=== PATIENT | female | born 1950 | race Caucasian/White ===

== ENCOUNTER 2018-08-05 07:49 | Inpatient (IN) ==
[2018-08-04 09:47] LABS: Basophils % 0.6 % (0.0-0.8); Eosinophils # 0.1 10*3/uL (0.0-0.87); Eosinophils % 1.5 % (0.00-10.9); Hematocrit 41.9 VOL% (35.7-47.0); Hemoglobin 14.2 GM/DL (12.0-16.0); Immature Granulocytes % 0.5 %; Immature Granulocytes Absolute 0.03 #; Lymphocytes # 1.1 10*3/uL (1.4-4.0); Lymphocytes % 18.2 % (21.3-54.2); Mean Corpuscular HGB Conc 33.9 GM/DL (32-36); Mean Corpuscular Volume 95.4 FL (87-102); Monocytes % 6.6 % (1.7-12.7); Neutrophils % 72.6 % (38.7-73.9); Platelet Count 205 T/CUMM (130-400); Red Blood Count 4.39 MC/CUMM (3.8-5.5); Red Cell Distribution Width 12.1 % (9.3-17.3); White Blood Count 6.2 T/CUMM (4-12)
[2018-08-04 09:55] LABS: PT Patient Result 11.1 SECS
[2018-08-04 10:15] LABS: Calcium 8.5 MG/DL (8.5-10.1); Osmolality,Calculated 275.7 MOS/KG (273-304)
[2018-08-04 10:55] LABS: Apearance,Urine Slightly Hazy (Clear); Bilirubin,Urine Negative (Negative); Blood, Urine Small mg/dL (Negative); Calcium Oxalate Crystals,Urine Moderate /HPF (Few); Glucose,Urine (UA) Negative (Negative); Ketones,Urine 5 mg/dL (Negative); Mucus,Urine Occasional /LPF (Occasional); Nitrite,Urine Negative (Negative); Protein,Urine Negative; RBC,Urine 6 /HPF (0-4); Squamous Epithelial Cell,Urine Occasional /HPF (0-10); Urine Color Yellow (Yellow); Urine Urobilinogen < 2.0 EU/DL (0.2-1.0); WBC,Urine 2 /HPF (0-6)
[~2018-08-05 07:49] MED LIST: ceFAZolin 1,000 MG in SYRINGE 1 EACH IV ONE
[2018-08-05] MEDS ORDERED: SCOPOLAMINE 1.5 MG PATCH TRANSDERM ONE ×2 (07:52→08:02)
[2018-08-05] MEDS ORDERED: DIAZEPAM 5 MG TABLET ONE (07:52)
[2018-08-05] MEDS ORDERED: FAMOTIDINE 20 MG TABLET ONE (07:52)
[2018-08-05] MEDS ORDERED: ceFAZolin 1,000 MG VIAL ONE (07:52)
[2018-08-05] MEDS ORDERED: DIAZEPAM 5 MG TABLET PO ONE (08:01)
[2018-08-05] MEDS ORDERED: FAMOTIDINE 20 MG TABLET PO ONE (08:02)
[2018-08-05] MEDS: LACTATED RINGERS 1,000 ML IV SCH ×3 (08:19→18:31)
[2018-08-05] MEDS ORDERED: BISACODYL 10 MG SUPP RECTAL PRN (13:27)
[2018-08-05] MEDS ORDERED: ONDANSETRON 4 MG/2 ML VIAL IV PRN ×2 (13:27→14:13)
[2018-08-05] MEDS ORDERED: MAGNESIUM HYDROXIDE SUSP 30 ML UDCUP PO PRN (13:27)
[2018-08-05] MEDS ORDERED: BENZOCAINE/MENTHOL LOZENGE 18/BOX PO PRN (13:27)
[2018-08-05] MEDS ORDERED: ACETAMINOPHEN 325 MG TABLET PO PRN (13:27)
[2018-08-05] MEDS ORDERED: DEXAMETHASONE 4 MG/1 ML VIAL ONE ×2 (13:35→14:09)
[2018-08-05] MEDS ORDERED: EPINEPHrine 1 MG/ML VIAL ONE (13:35)
[2018-08-05 13:39] LABS: Apearance,Urine CLEAR (Clear); Bacteria,Urine Occasional /HPF (Few); Bilirubin,Urine Negative (Negative); Blood, Urine Small mg/dL (Negative); Glucose,Urine (UA) Negative (Negative); Ketones,Urine 80 mg/dL (Negative); Mucus,Urine Occasional /LPF (Occasional); Nitrite,Urine Negative (Negative); Protein,Urine Negative; RBC,Urine 3 /HPF (0-4); Urine Color Yellow (Yellow); Urine Specific Gravity 1.011 (1.001-1.035); Urine Urobilinogen < 2.0 EU/DL (0.2-1.0); WBC,Urine 2 /HPF (0-6)
[2018-08-05] MEDS ORDERED: DESFLURANE 1 UNIT/15 MINUTE INH ONE (14:08)
[2018-08-05] MEDS ORDERED: PROPOFOL 200 MG/20 ML VIAL IV ONE (14:08)
[2018-08-05] MEDS ORDERED: MIDAZOLAM 2 MG/2 ML VIAL ONE (14:08)
[2018-08-05] MEDS ORDERED: KETOROLAC 30 MG/1 ML VIAL ONE (14:09)
[2018-08-05] MEDS ORDERED: ACETAMINOPHEN 1,000 MG/100 ML VIAL IV ONE (14:09)
[2018-08-05] MEDS ORDERED: LACTATED RINGERS 1,000 ML IV ONE (14:09)
[2018-08-05] MEDS ORDERED: NEOSTIGMINE 10 MG/10 ML VIAL ONE (14:09)
[2018-08-05] MEDS ORDERED: ROCURONIUM 100 MG/10 ML VIAL IV ONE (14:09)
[2018-08-05] MEDS ORDERED: GLYCOPYRROLATE 0.4 MG/2 ML VIAL ONE (14:09)
[2018-08-05] MEDS: HYDROmorphone 2 MG/1 ML VIAL IV PRN ×4 (14:15→20:45)
[2018-08-05] MEDS: ceFAZolin 1,000 MG in SYRINGE 1 EACH IV SCH (19:37)
[2018-08-06] MEDS: LACTATED RINGERS 1,000 ML IV SCH ×2 (00:51→09:24)
[2018-08-06] MEDS: HYDROmorphone 2 MG/1 ML VIAL IV PRN (03:28)
[2018-08-06] MEDS: ceFAZolin 1,000 MG in SYRINGE 1 EACH IV SCH (03:34)
[2018-08-06 03:59] LABS: Basophils % 0.1 % (0.0-0.8); Immature Granulocytes % 0.4 %; Immature Granulocytes Absolute 0.06 #; Lymphocytes # 0.8 10*3/uL (1.4-4.0); Mean Corpuscular HGB Conc 34.2 GM/DL (32-36); Mean Corpuscular Volume 95.5 FL (87-102); Mean Platelet Volume 9.4 FL (9.6-12.0); Monocytes % 6.2 % (1.7-12.7); Neutrophils % 87.3 % (38.7-73.9); Platelet Count 204 T/CUMM (130-400); Red Blood Count 3.98 MC/CUMM (3.8-5.5); Red Cell Distribution Width 12.2 % (9.3-17.3); White Blood Count 13.4 T/CUMM (4-12)
[2018-08-06] MEDS: oxyCODONE/ACETAMINOPHEN 5-325 MG TABLET PO PRN ×3 (07:55→20:58)
[2018-08-06] MEDS: IBUPROFEN 800 MG TABLET PO PRN ×2 (08:58→16:10)
[2018-08-06] MEDS: DOCUSATE SODIUM 100 MG CAPSULE PO PRN (20:59)
[2018-08-07] MEDS: IBUPROFEN 800 MG TABLET PO PRN (03:00)
[2018-08-07] MEDS ORDERED: SIMETHICONE CHEW 80 MG TABLET PO PRN (07:22)
[2018-08-07] MEDS: DOCUSATE SODIUM 100 MG CAPSULE PO PRN (09:18)
[2018-08-07] MEDS: oxyCODONE/ACETAMINOPHEN 5-325 MG TABLET PO PRN (09:41)
[2018-08-07 10:19] VITALS: BP 136/85
== END 2018-08-07 12:00 | disposition home or self-care (01) | DRG 830 ==
LOC: N.SDSINP 07:49 → N.OB 15:11
PROVIDERS: ADMIT Specialist; ATTEND Specialist